=== PATIENT | female | born 1970 | race African-American/Black ===

== ENCOUNTER 2025-01-26 23:26 | Inpatient (IN) | payer OTHER ==
[~2025-01-26] VITALS: Ht 157.5 cm; Wt 105.8 kg
[2025-01-26 23:30] VITALS: O2SAT 98
[2025-01-26] MEDS: ONDANSETRON HCL 4MG/2ML INJ IV ONE (23:55)
[2025-01-26] MEDS: MORPHINE SULFATE 4 MG/ML INJ (FOR IV/IM USE) IV ONE (23:55)
[2025-01-27 00:22] LABS: BASOPHILS % 1.1 % (0.0-2.0); EOSINOPHILS % 2.3 % (0.0-5.0); HEMATOCRIT. 40.7 % (36.0-48.0); HEMOGLOBIN. 13.6 g/dL (12.0-16.0); LYMPHOCYTES % 59.0 % (20.0-50.0); MEAN PLATELET VOLUME 9.8 fl (7.4-10.4); MONOCYTES % 6.5 % (2.0-8.0); NEUTROPHILS % 31.1 % (40.0-76.0); PLATELET 235 x1000/uL (130-400); RED BLOOD CELL COUNT 4.29 mill/uL (4.2-5.4); RED CELL DISTRIBUTION WIDTH 13.0 % (11.6-14.6)
[2025-01-27 00:37] LABS: CREATININE 0.7 mg/dL (0.6-1.0); UREA NITROGEN BLOOD 8 mg/dL (9-23)
[2025-01-27 00:38] LABS: TROPONIN I HIGH SENSITIVITY < 4 ng/L (3.0-34)
[2025-01-27 00:39] LABS: ASPARTATE AMINOTRANSFERASE 52 IU/L (<34); BILIRUBIN DIRECT 0.1 mg/dL (<=3.0); BILIRUBIN TOTAL 0.3 mg/dL (0.1-1.0); PROTEIN TOTAL 7.6 g/dL (6.0-8.3)
[2025-01-27 02:15] LABS: TROPONIN I HIGH SENSITIVITY < 4 ng/L (3.0-34)
[2025-01-27] MEDS ORDERED: MORPHINE SULFATE 2 MG/ML INJ (NOT FOR IM USE) IV ONE (02:30)
[2025-01-27] MEDS: MORPHINE SULFATE 4 MG/ML INJ (FOR IV/IM USE) IV NR (02:31)
[2025-01-27] MEDS ORDERED: GUAIFENESIN 200MG/10ML SUGAR FREE UDC PO PRN (03:00)
[2025-01-27] MEDS ORDERED: DEXTROSE 50% WATER 50ML SYRINGE IV PRN (03:00)
[2025-01-27] MEDS ORDERED: CLONIDINE 0.1MG TABLET PO PRN (03:00)
[2025-01-27] MEDS ORDERED: ACETAMINOPHEN 325MG TABLET PO PRN (03:00)
[2025-01-27] MEDS ORDERED: IPRATROPIUM/ALBUTEROL 0.5-3(2.5)MG/3ML NEB HHN PRN (03:00)
[2025-01-27 03:10] VITALS: BP 134/91; PULSE 68; RESP 20; TEMP 36.1956; TEMP 36.2; O2SAT 97
[2025-01-27 03:32] LABS: INR 1.1
[2025-01-27 03:49] LABS: T4 FREE 1.17 ng/dL (0.89-1.76)
[2025-01-27 04:00] VITALS: BP 103/70; PULSE 65; RESP 20; TEMP 36.6; O2SAT 98
[2025-01-27] MEDS: POTASSIUM CHLORIDE 20MEQ TABLET SR PO NR (05:33)
[2025-01-27] MEDS ORDERED: IOHEXOL-350 100 ML BOTTLE ONE (06:13)
[2025-01-27] MEDS ORDERED: METF-1149 PO (06:57)
[2025-01-27] MEDS ORDERED: TOPI25CA6 PO (06:57)
[2025-01-27] MEDS ORDERED: OMEP40CA20 PO (06:57)
[2025-01-27] MEDS ORDERED: ALBU18HF2 IH (06:57)
[2025-01-27] MEDS ORDERED: LORA10TA7 PO (06:57)
[2025-01-27] MEDS ORDERED: IBUP-1455 PO (06:57)
[2025-01-27 08:00] VITALS: BP 100/65; PULSE 70; RESP 18; TEMP 36.8; O2SAT 98
[2025-01-27] MEDS: BLOOD SUGAR DIAGNOSTIC STRIP TEST SCH (08:16)
[2025-01-27] MEDS: ASPIRIN 81MG TABLET PO SCH (09:08)
[2025-01-27] MEDS: ENOXAPARIN 40MG/0.4ML SYR SUBCUT SCH (09:09)
[2025-01-27] MEDS: INSULIN LISPRO 100 UNITS/ML SUBCUT SCH (09:14)
[2025-01-27] MEDS: PANTOPRAZOLE 40MG DR TABLET PO SCH (09:14)
[2025-01-27 10:05] LABS: INFLUENZA TYPE A Presumptive Negative (Pres. Neg.); INFLUENZA TYPE B Presumptive Negative (Pres. Neg.)
[2025-01-27 10:06] LABS: RESPIRATORY SYNCYTIAL VIRUS Not Detected (Not Detectd)
[2025-01-27 12:00] VITALS: BP 115/68; PULSE 78; RESP 18; TEMP 36.3; O2SAT 98
[2025-01-27 12:53] LABS: BASOPHILS % 0.4 % (0.0-2.0); EOSINOPHILS % 3.2 % (0.0-5.0); HEMATOCRIT. 40.5 % (36.0-48.0); HEMOGLOBIN. 13.3 g/dL (12.0-16.0); LYMPHOCYTES % 48.9 % (20.0-50.0); MEAN PLATELET VOLUME 10.1 fl (7.4-10.4); MONOCYTES % 7.6 % (2.0-8.0); NEUTROPHILS % 39.9 % (40.0-76.0); PLATELET 211 x1000/uL (130-400); RED BLOOD CELL COUNT 4.27 mill/uL (4.2-5.4); RED CELL DISTRIBUTION WIDTH 13.1 % (11.6-14.6)
[2025-01-27 13:13] LABS: CREATININE 0.7 mg/dL (0.6-1.0); TRIGLYCERIDE 87 mg/dL (0-150); UREA NITROGEN BLOOD 8 mg/dL (9-23)
[2025-01-27 13:14] LABS: LDL CHOLESTEROL 106 mg/dL (5-100)
[2025-01-27 13:15] LABS: PHOSPHORUS 2.4 mg/dL (2.5-4.9)
[2025-01-27 13:19] LABS: CREATINE KINASE MB FRACTION < 0.5 ng/mL (0.5-3.6); TROPONIN I HIGH SENSITIVITY < 4 ng/L (3.0-34)
[2025-01-27 13:40] LABS: *AMPHETAMINES SCREEN URINE NEGATIVE (NEGATIVE); *BARBITURATES SCREEN URINE NEGATIVE (NEGATIVE); *BENZODIAZEPINES SCREEN URINE NEGATIVE (NEGATIVE); *COCAINE SCREEN URINE NEGATIVE (NEGATIVE); CANNABINOID URINE SCREEN NEGATIVE (NEGATIVE); ECSTASY MDMA SCREEN URINE NEGATIVE (NEGATIVE); METHADONE URINE SCREEN NEGATIVE (NEGATIVE); OPIATES URINE SCREEN PRESUMPTIVE POSITIVE (NEGATIVE); PHENCYCLIDINE URINE SCREEN NEGATIVE (NEGATIVE)
[2025-01-27 14:32] LABS: CLARITY URINE CLEAR (CLEAR); COLOR URINE YELLOW (YELLOW); GLUCOSE URINE NEGATIVE (NEGATIVE); KETONES URINE NEGATIVE (NEGATIVE); NITRITE URINE NEGATIVE (NEGATIVE); OCCULT BLOOD URINE NEGATIVE (NEGATIVE); PH URINE 6.5 (4.5-8.0); PROTEIN URINE NEGATIVE (NEGATIVE); SPECIFIC GRAVITY URINE 1.010 (1.005-1.030)
[2025-01-27 14:33] LABS: LEUKOCYTE ESTERASE URINE NEGATIVE (NEGATIVE); UROBILINOGEN URINE 1.0 E.U./dL (0.2-1.0)
[2025-01-27 15:30] VITALS: BP_SYST 100; BP_SYST 107; BP_SYST 96; BP_DIAS 61; BP_DIAS 64; BP_DIAS 68; PULSE 77; RESP 18; TEMP 36.9; O2SAT 98
[2025-01-27 17:48] LABS: CREATINE KINASE MB FRACTION < 0.5 ng/mL (0.5-3.6)
[2025-01-27 17:49] LABS: TROPONIN I HIGH SENSITIVITY < 4 ng/L (3.0-34)
[2025-01-27 20:00] VITALS: BP_SYST 101; BP_SYST 108; BP_SYST 98; BP_DIAS 67; BP_DIAS 68; BP_DIAS 69; PULSE 92; RESP 18; TEMP 36.4; O2SAT 99
[2025-01-27] MEDS: ATORVASTATIN CALCIUM 40MG TABLET PO SCH (21:27)
[2025-01-28 00:29] VITALS: BP_SYST 108; BP_SYST 112; BP_DIAS 65; BP_DIAS 69; PULSE 76; RESP 19; TEMP 36.9; O2SAT 98
[2025-01-28] MEDS: MAGNESIUM 2 G PREMIX 50 ML IV NR (00:56)
[2025-01-28 04:00] VITALS: BP 97/62; PULSE 76; RESP 18; TEMP 36.6; O2SAT 98
[2025-01-28] MEDS: NITROGLYCERIN 0.4MG TABLET SL SL PRN (04:14)
[2025-01-28 07:09] LABS: BASOPHILS % 0.4 % (0.0-2.0); EOSINOPHILS % 3.4 % (0.0-5.0); HEMATOCRIT. 41.6 % (36.0-48.0); HEMOGLOBIN. 13.9 g/dL (12.0-16.0); LYMPHOCYTES % 58.5 % (20.0-50.0); MEAN PLATELET VOLUME 9.9 fl (7.4-10.4); MONOCYTES % 9.9 % (2.0-8.0); NEUTROPHILS % 27.8 % (40.0-76.0); PLATELET 233 x1000/uL (130-400); RED BLOOD CELL COUNT 4.41 mill/uL (4.2-5.4); RED CELL DISTRIBUTION WIDTH 13.2 % (11.6-14.6)
[2025-01-28 07:24] LABS: CREATININE 0.6 mg/dL (0.6-1.0); UREA NITROGEN BLOOD 7 mg/dL (9-23)
[2025-01-28 07:27] LABS: PHOSPHORUS 3.3 mg/dL (2.5-4.9)
[2025-01-28 08:00] VITALS: BP_SYST 100; BP_SYST 104; BP_SYST 112; BP_DIAS 69; BP_DIAS 72; BP_DIAS 73; PULSE 75; RESP 16; TEMP 36.5; O2SAT 97
[2025-01-28] MEDS ORDERED: HEPARIN 1000 UNITS/ML 10ML ONE (11:15)
[2025-01-28] MEDS ORDERED: FENTANYL CITRATE/PF 50MCG/ML 2ML VIAL ONE (11:15)
[2025-01-28] MEDS ORDERED: VERAPAMIL HCL 2.5 MG/1 ML 2ML VIAL IV ONE (11:15)
[2025-01-28] MEDS ORDERED: LIDOCAINE HCL 1% 20ML VIAL ONE (11:15)
[2025-01-28] MEDS ORDERED: MIDAZOLAM HCL 2 MG/2 ML VIAL ONE (11:15)
[2025-01-28] MEDS ORDERED: IODIXANOL 320MG/ML 100 ML BOTTLE IV ONE (11:16)
[2025-01-28] MEDS ORDERED: DIPHENHYDRAMINE 50MG/ML VIAL ONE (11:16)
[2025-01-28] MEDS ORDERED: ATROPINE SULFATE 1MG/10ML SYR IV PRN (12:30)
[2025-01-28] MEDS ORDERED: ACETAMINOPHEN 325MG TABLET PO PRN (12:30)
[2025-01-28 16:00] VITALS: BP_SYST 100; BP_SYST 101; BP_SYST 102; BP_DIAS 63; BP_DIAS 65; BP_DIAS 68; PULSE 72; RESP 15; TEMP 36.4; O2SAT 97
[2025-01-28] MEDS: ONDANSETRON HCL 4MG/2ML INJ IV PRN (17:01)
[2025-01-28] MEDS: ACETAMINOPHEN 325MG TABLET PO PRN (17:01)
[2025-01-28 20:00] VITALS: BP_SYST 102; BP_SYST 108; BP_SYST 109; BP_DIAS 65; BP_DIAS 68; BP_DIAS 69; PULSE 71; RESP 18; TEMP 36.6; O2SAT 97
[2025-01-29 00:20] VITALS: BP 111/71; PULSE 74; RESP 19; TEMP 36.3; O2SAT 98
[2025-01-29] MEDS: CALCIUM CARBONATE 500MG TABLET CHEW PO PRN (01:25)
[2025-01-29 04:00] VITALS: BP 117/74; PULSE 68; RESP 18; TEMP 36.6; O2SAT 97
[2025-01-29 06:40] LABS: BASOPHILS % 0.3 % (0.0-2.0); EOSINOPHILS % 3.3 % (0.0-5.0); HEMATOCRIT. 41.4 % (36.0-48.0); HEMOGLOBIN. 13.8 g/dL (12.0-16.0); LYMPHOCYTES % 62.7 % (20.0-50.0); MEAN PLATELET VOLUME 10.0 fl (7.4-10.4); MONOCYTES % 6.7 % (2.0-8.0); NEUTROPHILS % 27.0 % (40.0-76.0); PLATELET 220 x1000/uL (130-400); RED BLOOD CELL COUNT 4.39 mill/uL (4.2-5.4); RED CELL DISTRIBUTION WIDTH 13.0 % (11.6-14.6)
[2025-01-29 07:11] LABS: CREATININE 0.7 mg/dL (0.6-1.0); UREA NITROGEN BLOOD 7 mg/dL (9-23)
[2025-01-29 08:00] VITALS: BP 118/76; PULSE 71; RESP 20; TEMP 36.7; O2SAT 96
[2025-01-29] MEDS: DOCUSATE SODIUM 100MG CAPSULE PO PRN (11:18)
[2025-01-29 12:00] VITALS: BP 105/69; PULSE 69; RESP 20; TEMP 36.6; O2SAT 98
[2025-01-29] MEDS ORDERED: ASPI-1160 PO (15:28)
[2025-01-29] MEDS ORDERED: LIP40 PO (15:28)
[2025-01-29 16:04] VITALS: BP 118/76; PULSE 71; RESP 20; TEMP 98.1
== END 2025-01-29 16:51 | disposition home or self-care (01) | DRG 191 ==
LOC: ER 23:26 → 7WST 01-27 01:41 → EDBEDREQTM 01-27 02:08 → EDBEDREQDT 01-27 02:08 → EDBEDREQ 01-27 02:08 → ENRESERV 01-27 02:42
PROVIDERS: ADMIT Internal Medicine; ATTEND Internal Medicine
PROC: 4A023N7 Measurement of Cardiac Sampling and Pressure, Left Heart, Percutaneous Approach (ICD-10-PCS; principal; 2025-01-28)
PROC: B211YZZ Fluoroscopy of Multiple Coronary Arteries using Other Contrast (ICD-10-PCS; 2025-01-28)
DX: I25.110 Atherosclerotic heart disease of native coronary artery with unstable angina pectoris (principal); E11.9 Type 2 diabetes mellitus without complications; E87.6 Hypokalemia; R55 Syncope and collapse; I10 Essential (primary) hypertension; E66.9 Obesity, unspecified; R79.89 Other specified abnormal findings of blood chemistry; K21.9 Gastro-esophageal reflux disease without esophagitis; E78.00 Pure hypercholesterolemia, unspecified; K76.0 Fatty (change of) liver, not elsewhere classified; Z79.4 Long term (current) use of insulin; Z79.82 Long term (current) use of aspirin; Z79.84 Long term (current) use of oral hypoglycemic drugs; Z88.2 Allergy status to sulfonamides; Z90.710 Acquired absence of both cervix and uterus; Z88.8 Allergy status to other drugs, medicaments and biological substances; Z68.41 Body mass index [BMI] 40.0-44.9, adult
CPT/HCPCS: 36415; 71045; 71275; 80048; 80061; 80076; 80305; 81003; 82550; 82553; 82962; 83036; 83735; 83880; 84100; 84145; 84439; 84443; 84484; 85025; 85379; 87420; 87804; 93005; 93306; 93458; 93970; 96374; 96375; 99285; C1769; C1887; C1893; J1200; J1644; J1650; J1815; J2003; J2250; J2270; J2405; J3010; J3475; J3490; Q9967